=== PATIENT | female | born 1980 | race Hispanic/Latino ===

== ENCOUNTER 2016-11-01 11:23 | Inpatient (IN) | payer BC, OTHER ==
[2016-11-01 13:38] VITALS: BMI 32.8
[2016-11-01 14:55] VITALS: BP 118/78; PULSE 68; RESP 20; TEMP 98.2; O2SAT 99
[2016-11-01 15:11] LABS: BASO % 0.3 % (0.0-2.0); EOS # 0.1 K/uL (0.0-0.7); EOS % 0.5 % (0.0-4.0); HEMATOCRIT 37.8 % (34.0-47.0); LYMPH # 1.6 K/uL (1.0-4.3); LYMPH % 11.9 % (20.0-40.0); MEAN CELL VOLUME 94.7 fl (81.0-99.0); MEAN CORPUSCULAR HEMOGLOBIN 32.3 pg (27.0-31.0); MEAN CORPUSCULAR HGB CONC 34.1 g/dL (33.0-37.0); MEAN PLATELET VOLUME 8.9 fl (7.2-11.7); MONO # 0.7 K/uL (0.0-0.8); NEUT # 11.4 K/uL (1.8-7.0); NEUT % 82.3 % (50.0-75.0); RED CELL DISTRIBUTION WIDTH 13.2 % (11.5-14.5); WHITE BLOOD COUNT 13.8 K/uL (4.8-10.8)
--- NOTE | 2016-11-01 18:10 | OBPN ---
Datetime: 11/01/2016 18:04 IP Progress Impression: Normal progression of labor; Reassuring heart rate; Reactive non-stres s test; Rupture of membranes IP Procedures: Artificial ROM IP Progress Plan: Continue present management; Augmentation Contraction Comments Provider: irregular contractions FHR - Baseline A Provider: 150 IP Progress Note Comment: AROM, clear fluid Vital Signs Provider: Reviewed NICHD Accel Fetus A IP Provider: [id number] FHR Category Provider Fetus A: Category I NICHD Variability Prov Fetus A: Moderate 6-25bpm Dilatation, Provider: 1 Effacement, Provider: 70 Station, Provider: -2 NICHD Decel Fetus A IP Provider: None
--- NOTE | 2016-11-01 21:36 | OBPN ---
Datetime: 11/01/2016 21:00 IP Progress Impression: Normal progression of labor IP Progress Plan: Continue present management Contraction Comments Provider: regular contractions IP Progress Note Comment: Plan to continue current management. Patient is making cervical change. NICHD Accel Fetus A IP Provider: [id number] NICHD Variability Prov Fetus A: Moderate 6-25bpm Dilatation, Provider: 3 Effacement, Provider: 70 Station, Provider: -1 NICHD Decel Fetus A IP Provider: None
--- NOTE | 2016-11-02 06:00 | OBPN ---
Datetime: 11/02/2016 05:58 IP Progress Note Comment: Plan to augment with pitocn Vital Signs Provider: Reviewed NICHD Accel Fetus A IP Provider: [id number] NICHD Variability Prov Fetus A: Moderate 6-25bpm Dilatation, Provider: 3 Effacement, Provider: 100 Station, Provider: -1
[2016-11-02] MEDS ORDERED: Oxytocin 30 units/LR 500ML 30 U/500 ML BAG IV ONE ×2 (06:01→23:00)
[2016-11-02] MEDS ORDERED: Fentanyl/Bupivacaine HCl 250 ML EPI ONE (09:56)
[2016-11-02] MEDS ORDERED: Lactated Ringer's 1,000 ML IV ONE (10:53)
[2016-11-02] MEDS: Lactated Ringer's 1,000 ML IV SCH ×2 (11:53→16:50)
[2016-11-02] MEDS ORDERED: Ampicillin 2 GM in Sodium Chloride 0.9% 100 ML IVPB ONE (18:00)
[2016-11-02] MEDS ORDERED: Lactated Ringer's 1,000 ML IV SCH (20:00)
[2016-11-02] MEDS ORDERED: PED IVPB SCH (21:00)
[2016-11-02] MEDS ORDERED: AMPICILLIN IVPB SCH (21:00)
[2016-11-02] MEDS: AMPicillin 1 GM in Sodium Chloride 0.9% 100 ML IVPB SCH (22:00)
[2016-11-03] MEDS ORDERED: Benzocaine/Menthol SPRAY TOP PRN (00:28)
[2016-11-03] MEDS ORDERED: Oxycodone/Acetaminophen 5/325 mg Tab PO PRN ×2 (00:28)
[2016-11-03] MEDS: AMPicillin 1 GM in Sodium Chloride 0.9% 100 ML IVPB SCH ×3 (01:54→08:58)
[2016-11-03 08:36] LABS: HEMATOCRIT 31.6 % (34.0-47.0); MEAN CELL VOLUME 96.1 fl (81.0-99.0); MEAN CORPUSCULAR HEMOGLOBIN 32.1 pg (27.0-31.0); MEAN CORPUSCULAR HGB CONC 33.4 g/dL (33.0-37.0); RED CELL DISTRIBUTION WIDTH 13.1 % (11.5-14.5)
[2016-11-03 08:48] LABS: WHITE BLOOD COUNT 24.9 K/uL (4.8-10.8)
[2016-11-03] MEDS: Multivitamin With Minerals Tab PO SCH (08:58)
[2016-11-04] MEDS: Multivitamin With Minerals Tab PO SCH (09:37)
--- NOTE | 2016-11-04 11:13 | OBPPN ---
Datetime: 11/04/2016 11:10 PP Pain Prov: Within normal limits PP Nausea Prov: Denies PP Flatus Prov: Yes PP BM Prov: Yes PP Breasts Prov: Normal PP Heart Prov: Normal PP Lungs Prov: Normal PP Abdomen/Uterus Prov: Normal PP Lochia Prov: Normal PP Vulva/Perineum Prov: Normal PP CVA Tenderness Prov: Normal PP Extremities Prov: Normal PP Impression Prov: Normal progression PP Plan Prov: Continue present management PP Progress Note Prov: S/P , [facility] and feeding prob lems. Patient and FOB Jose A coping well. Pumping. Ambulating well. will discharge home today. foll ow up with [facility] and follow up with us in 6 wks PP. Instructions given. warning signs, rest and c ourse of care. IP PP Procedures: None
[2016-11-05] MEDS ORDERED: Patient's Own Med (Prenatal Vit Calc,Iron,Folic [Prenatal Vitamins] 1 TAB) PO SCH (09:00)
== END 2016-11-04 12:30 | disposition home or self-care (01) | DRG 774 ==
LOC: H.EROB2 11:23 → H.L&D 14:01 → H.OB/GYN 11-03 00:30
PROVIDERS: ADMIT Obstetrics & Gynecology; ATTEND Obstetrics & Gynecology
PROC: 4A1HXCZ Monitoring of Products of Conception, Cardiac Rate, External Approach (ICD-10-PCS; 2016-11-01)
PROC: 0KQM0ZZ Repair Perineum Muscle, Open Approach (ICD-10-PCS; principal; 2016-11-02)
PROC: 10E0XZZ Delivery of Products of Conception, External Approach (ICD-10-PCS; 2016-11-02)
DX: O77.0 Labor and delivery complicated by meconium in amniotic fluid (principal); O75.2 Pyrexia during labor, not elsewhere classified; O48.0 Post-term pregnancy; Z3A.40 40 weeks gestation of pregnancy; Z37.0 Single live birth; O70.1 Second degree perineal laceration during delivery; O09.513 Supervision of elderly primigravida, third trimester; O43.123 Velamentous insertion of umbilical cord, third trimester